=== PATIENT | female | born 1950 | race Caucasian/White ===

== ENCOUNTER → 2016-05-24 | Outpatient (CLI) | payer OTHER, MEDICARE ==
--- NOTE | 2016-05-24 18:41 | DX ---
Cervical Spine (AP and Lateral Upright Views), at 11:38 a.m. Clinical History: 65-year-old female for follow up after arthrodesis. ICD-10 Diagnostic Code: M43.22. Comparison Study: Cervical spine, dated February 06, 2016. Findings: The patient has undergone an anterior cervical diskectomy and fusion from C3 through C6, w ith stable alignment and no periprosthetic lucency. The alignment remains stable, with 3 mm of C5 ant erolisthesis above C6. There is moderately advanced degenerative disk space narrowing at C6-C7 with v entral traction spurs. 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 The preverteb ral soft tissue thickness is normal. There is a mild upper thoracic levocurvature. Impression: There has been no significant interval change from February 06, 2016 in the alignment f ollowing ACDF at the C3-C6 levels.
== END ==
LOC: FIMAGING 11:35
PROVIDERS: ATTEND Physician Assistant Surgical
DX: Z09 Encounter for follow-up examination after completed treatment for conditions other than malignant neoplasm (principal); Z98.1 Arthrodesis status; M43.12 Spondylolisthesis, cervical region; M50.323 Other cervical disc degeneration at C6-C7 level

== ENCOUNTER → 2016-06-28 | Outpatient (CLI) | payer OTHER, MEDICARE | LOC: FIMAGING 12:54 | PROVIDERS: ATTEND Physician Assistant Surgical | DX: Z47.89 Encounter for other orthopedic aftercare (principal); Z98.1 Arthrodesis status; M50.323 Other cervical disc degeneration at C6-C7 level ==

== ENCOUNTER → 2017-01-05 | Outpatient (CLI) | payer OTHER, MEDICARE | LOC: FIMAGING 18:15 | PROVIDERS: ATTEND Neurological Surgery | DX: M43.22 Fusion of spine, cervical region (principal); M50.323 Other cervical disc degeneration at C6-C7 level; M50.23 Other cervical disc displacement, cervicothoracic region ==